=== PATIENT | male | born 1945 | race African-American/Black ===

== ENCOUNTER 2017-10-06 14:34 | Outpatient (CLI) | payer MEDICARE ==
[~2017-10-06 14:34] MED LIST: Gadobenate Dimeglumine 529 MG/1 ML (20ML VIAL) ONE
[2017-10-06 15:22] LABS: Estimated GFR-MDRD - POC Greater than 90
--- NOTE | 2017-10-06 16:34 | MRI ---
EXAM: BRAIN MRI WITH AND WITHOUT CONTRAST 10/06/17 COMPARISON: 11/08/13. HISTORY: Brain tumor. Status post surgery seven years ago. Followup exam. COMPARISON: 11/08/13. TECHNIQUE: Brain MRI is performed with and without intravenous gadolinium administration. Multisequential, mult iplanar imaging is performed. FINDINGS: Hemosiderin deposition along the right frontotemporal extra-axial space is redemonstrated. Stable pos tsurgical change involving the right frontal and temporal calvarium. No acute hemorrhage on the axial gradient echo sequence. Stable T2 and FLAIR white matter hyperintensity involving the right temporal lobe. Areas of gliosis i s favored. Minimal additional T2 and FLAIR white matter hyperintensities are noted, unchanged. Chroni c small vessel ischemic changes are favored. Central arterial flow voids are maintained. Absent restricted diffusion. 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 There is mild and stable diffuse enhancement of the meninges. No pathologic enhancement of the brain parenchyma. IMPRESSION: No evidence of recurrent or residual mass. Stable gliotic and malacic changes. POS: [facility]
== END 2017-10-06 14:35 | disposition home or self-care (01) ==
LOC: TBSIIMAG 14:34
PROVIDERS: ATTEND Neurological Surgery
DX: D49.6 Neoplasm of unspecified behavior of brain (principal)
CPT/HCPCS: 70553; A9579

== ENCOUNTER 2018-07-06 20:30 | Outpatient (CLI) | payer MEDICARE | END 2018-07-06 20:31 | disposition home or self-care (01) | LOC: SLEEPLAB 20:30 | PROVIDERS: ATTEND Family Medicine | DX: G47.33 Obstructive sleep apnea (adult) (pediatric) (principal); R53.83 Other fatigue; R06.83 Snoring; E66.9 Obesity, unspecified; R51 Headache; G47.9 Sleep disorder, unspecified; I10 Essential (primary) hypertension; Z68.41 Body mass index [BMI] 40.0-44.9, adult | CPT/HCPCS: 95810 ==

== ENCOUNTER 2021-11-28 14:10 | Outpatient (CLI) | payer MEDICARE | END 2021-11-28 14:11 | disposition home or self-care (01) | LOC: TBSIIMAG 14:10 | PROVIDERS: ATTEND Anesthesiology | DX: M54.50 Low back pain, unspecified (principal); M47.816 Spondylosis without myelopathy or radiculopathy, lumbar region; M48.061 Spinal stenosis, lumbar region without neurogenic claudication; N28.1 Cyst of kidney, acquired; E88.2 Lipomatosis, not elsewhere classified; M48.07 Spinal stenosis, lumbosacral region | CPT/HCPCS: 72148 ==

== ENCOUNTER 2022-02-13 10:46 | Emergency (ER) | payer MEDICARE ==
[2022-02-13 12:31] LABS: Hemoglobin 15.3 g/dL (14.0-18.0); Mean Corpuscular HGB CONC 31.6 g/dL (32.0-36.0); Mean Corpuscular Hemoglobin 29.7 pg (27.0-31.0); Mean Platelet Volume 8.4 fL (7.4-10.4); Platelet Count 273 thou/uL (130-400); RBC Distribution Width 13.9 % (11.5-14.5); Red Blood Cell (RBC) Count 5.16 mill/uL (4.70-6.10); White Blood Cell (WBC) Count 18.5 thou/uL (4.8-10.8)
[2022-02-13 12:50] LABS: Band 1 % (5-11); Eosinophils 2 % (0-10); Lymphocytes 73 % (21-51); MDiff Complete? YES; Monocytes 4 % (0-10); Neutrophil 18 % (42-75); Platelet Morphology Comment Appears Adequate; RBC Morphology Normal; Reactive Lymphocytes 2 % (0-10)
[2022-02-13 13:00] LABS: ALT (SGPT) 23 U/L (8-55); AST (SGOT) 28 U/L (5-34); Albumin 4.2 g/dL (3.4-4.8); Alkaline Phosphatase 61 U/L (40-110); Anion Gap 14 mmol/L (10-20); BUN (Urea Nitrogen) 12 mg/dL (8.4-25.7); Bilirubin, Total 0.6 mg/dL (0.2-1.2); Calc. Creatinine Clearance 0 mL/min (70-130); Calcium 9.6 mg/dL (7.8-10.44); Carbon Dioxide 27 mmol/L (23-31); Chloride 103 mmol/L (98-107); Globulin 3.3 g/dL (2.4-3.5); Glucose 107 mg/dL (83-110); Lipase 34 U/L (8-78); Potassium 3.7 mmol/L (3.5-5.1); Protein, Total 7.5 g/dL (5.8-8.1); Sodium 140 mmol/L (136-145)
[2022-02-13 14:34] LABS: Bilirubin Negative (Negative); Blood, Urine Negative (Negative); Clarity Clear (Clear); Glucose, Urine (Dipstick) Normal (Negative); Ketone, Urine Negative (Negative); Leukocyte Negative Leu/uL (Negative); Nitrite Negative (Negative); Protein, Urine (Dipstick) Negative (Neg-Trace); Specific Gravity, Urine 1.027 (1.002-1.036); Urobilinogen Normal mg/dL (Less than 2)
== END 2022-02-13 15:02 | disposition home or self-care (01) ==
LOC: ERS 10:46
DX: R10.9 Unspecified abdominal pain (principal); E11.9 Type 2 diabetes mellitus without complications; E78.5 Hyperlipidemia, unspecified; E78.00 Pure hypercholesterolemia, unspecified; I10 Essential (primary) hypertension; Z79.899 Other long term (current) drug therapy
CPT/HCPCS: 36415; 74177; 80053; 81003; 83690; 84484; 85025; 93005

== ENCOUNTER 2022-05-14 14:44 | Outpatient (CLI) | payer MEDICARE ==
[~2022-05-14 14:44] MED LIST changes: -Gadobenate Dimeglumine 529 MG/1 ML (20ML VIAL) ONE; +Iopamidol 370 76% 100 ML VIAL ONE
== END 2022-05-14 14:45 | disposition home or self-care (01) ==
LOC: BICCT 14:44
PROVIDERS: ATTEND Family Medicine
DX: R59.0 Localized enlarged lymph nodes (principal); K11.1 Hypertrophy of salivary gland
CPT/HCPCS: 70491; 74177; Q9967

== ENCOUNTER 2024-04-22 10:15 | Outpatient (CLI) | payer MEDICARE | END 2024-04-22 10:16 | disposition home or self-care (01) | LOC: PET 10:15 | PROVIDERS: ATTEND Internal Medicine Hematology & Oncology | DX: C91.10 Chronic lymphocytic leukemia of B-cell type not having achieved remission (principal); R59.0 Localized enlarged lymph nodes | CPT/HCPCS: 78815; A9552 ==

== ENCOUNTER 2024-08-11 13:56 | Outpatient (CLI) | payer MEDICARE | END 2024-08-11 13:57 | disposition home or self-care (01) | LOC: BICCT 13:56 | PROVIDERS: ATTEND Family Medicine | DX: N40.1 Benign prostatic hyperplasia with lower urinary tract symptoms (principal); R31.9 Hematuria, unspecified; E79.0 Hyperuricemia without signs of inflammatory arthritis and tophaceous disease; N28.1 Cyst of kidney, acquired; R59.0 Localized enlarged lymph nodes | CPT/HCPCS: 74178 ==

== ENCOUNTER 2024-12-15 13:35 | Emergency (ER) | payer MEDICARE ==
[2024-12-15 14:31] LABS: #Basophils 0.11 10x3/uL (0.0-0.2); %Basophils 1.7 % (0.0-1.0); %Eosinophils 1.4 % (0.0-10.0); %Lymphocytes 30.2 % (21.0-51.0); %Monocytes 11.7 % (0.0-10.0); %Neutrophils 50.2 % (42.0-75.0); Hematocrit 40.3 % (42.0-52.0); Hemoglobin 12.8 g/dL (14.0-18.0); Mean Corpuscular HGB CONC 31.8 g/dL (32.0-36.0); Mean Corpuscular Hemoglobin 27.1 pg (27.0-31.0); Mean Corpuscular Volume 85.4 fL (78.0-98.0); Platelet Count 346 10x3/uL (130-400); Red Blood Cell (RBC) Count 4.72 mill/uL (4.70-6.10)
[2024-12-15 14:32] LABS: Anisocytosis MODERATE=16-30 cells HPF (0-5); Macrocytosis SLIGHT = 6-15 cells HPF (0-5); Platelet Adequacy Comment Platelets Normal; Poikilocytosis SLIGHT = 6-15 cells HPF (0-5); Polychromasia SLIGHT = 2-3 cells HPF (0-2)
[2024-12-15 14:36] LABS: ALT (SGPT) 9 U/L (Less than 45); AST (SGOT) 25 U/L (11-34); Alkaline Phosphatase 72 U/L (40-110); Anion Gap 13 mmol/L (10-20); BUN (Urea Nitrogen) 13 mg/dL (8.4-25.7); Bilirubin, Total 0.9 mg/dL (0.3-1.2); Calc. Creatinine Clearance 0 mL/min (70-130); Calcium 9.4 mg/dL (7.8-10.44); Carbon Dioxide 27 mmol/L (23-31); Chloride 104 mmol/L (98-107); Estimated GFR 81; Globulin 3.4 g/dL (2.4-3.5); Glucose 94 mg/dL (83-110); Potassium 3.5 mmol/L (3.5-5.1); Protein, Total 7.4 g/dL (5.8-8.1); Sodium 140 mmol/L (136-145)
[2024-12-15 17:19] LABS: Bacteria/HPF None Seen HPF (None Seen); Bilirubin Negative (Negative); Blood, Urine Negative (Negative); CAUTI Indications for Culture Dysuria,urgency,freq; Clarity Clear (Clear); Glucose, Urine (Dipstick) Normal (Negative); Ketone, Urine Negative (Negative); Leukocyte 25 Leu/uL (Negative); Nitrite Negative (Negative); Protein, Urine (Dipstick) Negative (Neg-Trace); RBC/HPF 0-3 HPF (0-3); Specific Gravity, Urine 1.014 (1.002-1.036); Squamous Epithelial 0-3 HPF (0-3); Urobilinogen Normal mg/dL (Less than 2); pH, Urine 5.5 (5.0-9.0)
[2024-12-15 17:20] LABS: Urine Culture Reflex No No
== END 2024-12-15 17:35 | disposition home or self-care (01) ==
LOC: ERS 13:35
DX: N45.1 Epididymitis (principal); I86.1 Scrotal varices; N50.89 Other specified disorders of the male genital organs; E11.9 Type 2 diabetes mellitus without complications; I10 Essential (primary) hypertension; Z55.6 Problems related to health literacy
CPT/HCPCS: 36415; 76870; 80053; 81001; 85025; 93976

== ENCOUNTER 2025-04-18 12:17 | Outpatient (CLI) | payer MEDICARE ==
[2025-04-18 13:44] LABS: Hematocrit 46.2 % (42.0-52.0); Hemoglobin 14.5 g/dL (14.0-18.0); Mean Corpuscular Hemoglobin 26.4 pg (27.0-31.0); Mean Corpuscular Volume 84.2 fL (78.0-98.0); Platelet Count 304 10x3/uL (130-400); Red Blood Cell (RBC) Count 5.49 mill/uL (4.70-6.10); White Blood Cell (WBC) Count 5.71 10x3/uL (4.8-10.8)
[2025-04-18 14:01] LABS: INR-International Normal Ratio 1.1; Prothrombin Time 14.2 sec (12.0-14.7)
[2025-04-18 14:02] LABS: PTT 28.6 sec (22.9-36.1)
[2025-04-18 14:22] LABS: Anion Gap 13 mmol/L (10-20); BUN (Urea Nitrogen) 16 mg/dL (8.4-25.7); Calc. Creatinine Clearance 0 mL/min (70-130); Calcium 9.2 mg/dL (7.8-10.44); Carbon Dioxide 25 mmol/L (23-31); Chloride 109 mmol/L (98-107); Glucose 105 mg/dL (83-110); Potassium 3.5 mmol/L (3.5-5.1); Sodium 143 mmol/L (136-145)
[2025-04-18 14:37] LABS: Bacteria/HPF None Seen HPF (None Seen); Glucose, Urine (Dipstick) Normal (Negative); Leukocyte Negative Leu/uL (Negative); Protein, Urine (Dipstick) Negative (Neg-Trace); RBC/HPF 0-3 HPF (0-3); Specific Gravity, Urine 1.017 (1.002-1.036); WBC/HPF 0-3 HPF (0-3)
== END 2025-04-18 12:18 | disposition home or self-care (01) ==
LOC: LABBT 12:17
PROVIDERS: ATTEND Urology
DX: Z01.818 Encounter for other preprocedural examination (principal); N50.812 Left testicular pain; N45.1 Epididymitis; N40.1 Benign prostatic hyperplasia with lower urinary tract symptoms; K59.01 Slow transit constipation; C95.90 Leukemia, unspecified not having achieved remission; I10 Essential (primary) hypertension; E11.9 Type 2 diabetes mellitus without complications; N52.1 Erectile dysfunction due to diseases classified elsewhere; R31.0 Gross hematuria; R97.20 Elevated prostate specific antigen [PSA]; E66.01 Morbid (severe) obesity due to excess calories
CPT/HCPCS: 71046; 80048; 81001; 85027; 85610; 85730; 87077; 87086; 93005; 93010

== ENCOUNTER 2025-04-27 09:30 | Day surgery (SDC) | payer MEDICARE ==
[2025-04-18 12:37] VITALS: BMI 41.1
[2025-04-27] MEDS ORDERED: cefTRIAXone (ROCEPHIN) 1 GM VIAL ONE (10:17)
[2025-04-27] MEDS ORDERED: fentaNYL PF 100 MCG/2 ML SYRINGE ONE (11:51)
[2025-04-27] MEDS ORDERED: Lidocaine 1% PF 5 ML VIAL ONE (11:51)
[2025-04-27] MEDS ORDERED: PROPOFOL 20 ML ONE (11:51)
[2025-04-27] MEDS ORDERED: Ondansetron PF 4 MG/2 ML Vial ONE (11:51)
[2025-04-27] MEDS ORDERED: Oxybutynin 5 MG TAB ONE (14:26)
== END 2025-04-27 17:21 | disposition home or self-care (01) ==
LOC: SDC 09:30
PROVIDERS: ATTEND Urology
PROC: 0VT08ZZ Resection of Prostate, Via Natural or Artificial Opening Endoscopic (ICD-10-PCS; principal; 2025-04-27)
DX: C61 Malignant neoplasm of prostate (principal); N40.1 Benign prostatic hyperplasia with lower urinary tract symptoms; N13.8 Other obstructive and reflux uropathy; N50.812 Left testicular pain; N45.1 Epididymitis; I10 Essential (primary) hypertension; K21.9 Gastro-esophageal reflux disease without esophagitis; E66.01 Morbid (severe) obesity due to excess calories; Z68.41 Body mass index [BMI] 40.0-44.9, adult; Z79.899 Other long term (current) drug therapy
CPT/HCPCS: 52601; A4333; J0696; J2405; J2704; 88305; 88344

== ENCOUNTER 2025-05-14 17:18 | Inpatient (IN) | payer MEDICARE ==
[2025-05-14] MEDS ORDERED: Acetaminophen 500 MG TAB PO PRN (21:15)
[2025-05-14] MEDS ORDERED: hydrALAZINE 20 MG/ML VIAL SLOW IVP PRN (21:15)
[2025-05-14 21:17] LABS: #Basophils 0.06 10x3/uL (0.0-0.2); #Eosinophils 0.10 10x3/uL (0.0-0.7); #Monocytes 0.48 10x3/uL (0.11-0.59); #Neutrophils 6.30 10x3/uL (1.40-6.50); %Basophils 0.7 % (0.0-1.0); %Eosinophils 1.1 % (0.0-10.0); %Lymphocytes 21.0 % (21.0-51.0); %Monocytes 5.4 % (0.0-10.0); %Neutrophils 70.5 % (42.0-75.0); Hematocrit 39.3 % (42.0-52.0); Hemoglobin 12.7 g/dL (14.0-18.0); Mean Corpuscular Hemoglobin 26.4 pg (27.0-31.0); Mean Corpuscular Volume 81.7 fL (78.0-98.0); Platelet Count 492 10x3/uL (130-400); Red Blood Cell (RBC) Count 4.81 mill/uL (4.70-6.10); White Blood Cell (WBC) Count 8.94 10x3/uL (4.8-10.8)
[2025-05-14] MEDS ORDERED: Calcium Carbonate 500 MG ChewTAB PO PRN (21:20)
[2025-05-14] MEDS ORDERED: Ondansetron PF 4 MG/2 ML Vial IVP PRN (21:20)
[2025-05-14 21:37] LABS: ALT (SGPT) 21 U/L (Less than 45); AST (SGOT) 36 U/L (11-34); Albumin 3.5 g/dL (3.1-4.5); Alkaline Phosphatase 84 U/L (40-110); Anion Gap 14 mmol/L (10-20); BUN (Urea Nitrogen) 14 mg/dL (8.4-25.7); Bilirubin, Total 0.4 mg/dL (0.3-1.2); Calc. Creatinine Clearance 0 mL/min (70-130); Calcium 9.2 mg/dL (7.8-10.44); Carbon Dioxide 25 mmol/L (23-31); Chloride 99 mmol/L (98-107); Globulin 3.5 g/dL (2.4-3.5); Glucose 120 mg/dL (83-110); Potassium 3.9 mmol/L (3.5-5.1); Sodium 134 mmol/L (136-145)
[2025-05-14 22:19] VITALS: BMI 41.2
[2025-05-14] MEDS: cefTRIAXone\\ROCEPHIN 1 GM in Sodium Chloride 0.9% 100 ML IVPB SCH (22:32)
[2025-05-14] MEDS: HYDROcodone/Acetaminophen 5/325 mg Tablet PO PRN (23:02)
[2025-05-14] MEDS: Melatonin 3 MG TAB PO PRN (23:03)
[2025-05-15 00:06] LABS: Bacteria/HPF None Seen HPF (None Seen); CAUTI Indications for Culture Pelvic or flank pain; Glucose, Urine (Dipstick) Normal (Negative); Leukocyte 500 Leu/uL (Negative); Protein, Urine (Dipstick) 30 mg/dL (Neg-Trace); RBC/HPF Greater than 50 HPF (0-3); Specific Gravity, Urine 1.005 (1.002-1.036); WBC/HPF Greater than 50 HPF (0-3)
[2025-05-15 00:12] LABS: Urine Culture Reflex Yes Yes
[2025-05-15 06:35] LABS: #Basophils 0.07 10x3/uL (0.0-0.2); #Eosinophils 0.18 10x3/uL (0.0-0.7); #Monocytes 0.80 10x3/uL (0.11-0.59); #Neutrophils 4.75 10x3/uL (1.40-6.50); %Basophils 0.8 % (0.0-1.0); %Eosinophils 2.2 % (0.0-10.0); %Lymphocytes 29.7 % (21.0-51.0); %Monocytes 9.6 % (0.0-10.0); %Neutrophils 57.0 % (42.0-75.0); Hematocrit 41.4 % (42.0-52.0); Hemoglobin 13.3 g/dL (14.0-18.0); Mean Corpuscular Hemoglobin 26.5 pg (27.0-31.0); Mean Corpuscular Volume 82.6 fL (78.0-98.0); Platelet Count 508 10x3/uL (130-400); Red Blood Cell (RBC) Count 5.01 mill/uL (4.70-6.10); White Blood Cell (WBC) Count 8.34 10x3/uL (4.8-10.8)
[2025-05-15 06:47] LABS: Anion Gap 13 mmol/L (10-20); BUN (Urea Nitrogen) 12 mg/dL (8.4-25.7); Calc. Creatinine Clearance 115 mL/min (70-130); Calcium 9.0 mg/dL (7.8-10.44); Carbon Dioxide 25 mmol/L (23-31); Chloride 102 mmol/L (98-107); Glucose 110 mg/dL (83-110); Potassium 3.4 mmol/L (3.5-5.1); Sodium 137 mmol/L (136-145)
[2025-05-15] MEDS: Allopurinol 100 MG TAB PO SCH (09:03)
[2025-05-15] MEDS: Pregabalin 50 MG CAP PO SCH (09:04)
[2025-05-15] MEDS: Metoprolol Succinate XL 50 MG ER.TAB PO SCH (09:04)
[2025-05-15 14:43] LABS: Potassium 3.7 mmol/L (3.5-5.1)
[2025-05-15] MEDS: Oxybutynin 5 MG TAB PO PRN (20:55)
[2025-05-16] MEDS: HYDROcodone/Acetaminophen 5/325 mg Tablet PO PRN (03:17)
[2025-05-16 04:50] LABS: #Basophils 0.09 10x3/uL (0.0-0.2); #Eosinophils 0.29 10x3/uL (0.0-0.7); #Monocytes 0.97 10x3/uL (0.11-0.59); #Neutrophils 5.29 10x3/uL (1.40-6.50); %Basophils 1.0 % (0.0-1.0); %Eosinophils 3.2 % (0.0-10.0); %Lymphocytes 26.7 % (21.0-51.0); %Monocytes 10.6 % (0.0-10.0); %Neutrophils 57.5 % (42.0-75.0); Hematocrit 39.5 % (42.0-52.0); Hemoglobin 12.5 g/dL (14.0-18.0); Mean Corpuscular Hemoglobin 26.4 pg (27.0-31.0); Mean Corpuscular Volume 83.3 fL (78.0-98.0); Platelet Count 513 10x3/uL (130-400); Red Blood Cell (RBC) Count 4.74 mill/uL (4.70-6.10); White Blood Cell (WBC) Count 9.18 10x3/uL (4.8-10.8)
[2025-05-16 05:29] LABS: Anion Gap 14 mmol/L (10-20); BUN (Urea Nitrogen) 13 mg/dL (8.4-25.7); Calc. Creatinine Clearance 107 mL/min (70-130); Calcium 9.1 mg/dL (7.8-10.44); Carbon Dioxide 25 mmol/L (23-31); Chloride 101 mmol/L (98-107); Glucose 101 mg/dL (83-110); Potassium 3.5 mmol/L (3.5-5.1); Sodium 136 mmol/L (136-145)
[2025-05-16] MEDS: Senokot S 8.6-50 MG TAB PO PRN (08:51)
[2025-05-16 11:52] VITALS: BP 137/82; TEMP 97.3
== END 2025-05-16 18:02 | disposition home or self-care (01) | DRG 920 ==
LOC: ERS 17:18 → SURG B 21:24
PROVIDERS: ADMIT Internal Medicine; ATTEND Family Medicine
PROC: 0T2BX0Z Change Drainage Device in Bladder, External Approach (ICD-10-PCS; principal; 2025-05-14)
PROC: 3E03329 Introduction of Other Anti-infective into Peripheral Vein, Percutaneous Approach (ICD-10-PCS; 2025-05-14)
DX: N99.820 Postprocedural hemorrhage of a genitourinary system organ or structure following a genitourinary system procedure (principal); C91.10 Chronic lymphocytic leukemia of B-cell type not having achieved remission; D62 Acute posthemorrhagic anemia; Z68.41 Body mass index [BMI] 40.0-44.9, adult; R31.0 Gross hematuria; I10 Essential (primary) hypertension; G62.9 Polyneuropathy, unspecified; M10.9 Gout, unspecified; E11.9 Type 2 diabetes mellitus without complications; G89.29 Other chronic pain; Z79.82 Long term (current) use of aspirin; Z79.899 Other long term (current) drug therapy; C61 Malignant neoplasm of prostate; N40.1 Benign prostatic hyperplasia with lower urinary tract symptoms; R33.8 Other retention of urine; E78.00 Pure hypercholesterolemia, unspecified; E66.01 Morbid (severe) obesity due to excess calories
CPT/HCPCS: 36415; 36416; 51798; 80048; 80053; 81001; 85025; 87086; 99284; J0696

== ENCOUNTER 2025-05-18 19:55 | Emergency (ER) | payer MEDICARE ==
[2025-05-18 21:58] LABS: CAUTI Indications for Culture Urological Procedure; Glucose, Urine (Dipstick) Normal (Negative); Leukocyte 500 Leu/uL (Negative); Protein, Urine (Dipstick) 200 mg/dL (Neg-Trace); RBC/HPF Greater than 50 HPF (0-3); Specific Gravity, Urine 1.017 (1.002-1.036); WBC/HPF Greater than 50 HPF (0-3)
[2025-05-18 21:59] LABS: Bacteria/HPF 1+ HPF (None Seen)
[2025-05-18 22:00] LABS: Urine Culture Reflex Yes Yes
[2025-05-18] MEDS ORDERED: Ciprofloxacin 500 MG TAB ONE (22:05)
== END 2025-05-18 22:24 | disposition home or self-care (01) ==
LOC: ERS 19:55
DX: T83.091A Other mechanical complication of indwelling urethral catheter, initial encounter (principal); N39.0 Urinary tract infection, site not specified; I10 Essential (primary) hypertension
CPT/HCPCS: 51702; 81001; 87086; 99283

== ENCOUNTER 2025-05-20 23:15 | Emergency (ER) | payer MEDICARE | END 2025-05-21 00:20 | disposition home or self-care (01) | LOC: ERS 23:15 | DX: T83.091A Other mechanical complication of indwelling urethral catheter, initial encounter (principal); R33.9 Retention of urine, unspecified; I10 Essential (primary) hypertension | CPT/HCPCS: 51798; 99282 ==

== ENCOUNTER 2025-05-30 13:32 | Outpatient (CLI) | payer MEDICARE | END 2025-05-30 13:33 | disposition home or self-care (01) | LOC: BICMRI 13:32 | PROVIDERS: ATTEND Nurse Practitioner Family | DX: M47.816 Spondylosis without myelopathy or radiculopathy, lumbar region (principal); M48.061 Spinal stenosis, lumbar region without neurogenic claudication; M48.07 Spinal stenosis, lumbosacral region | CPT/HCPCS: 72148 ==

== ENCOUNTER 2025-06-28 14:13 | Outpatient (CLI) | payer MEDICARE | END 2025-06-28 14:14 | disposition home or self-care (01) | LOC: BICRAD 14:13 | PROVIDERS: ATTEND Nurse Practitioner Family | DX: M47.816 Spondylosis without myelopathy or radiculopathy, lumbar region (principal); M25.552 Pain in left hip; M25.551 Pain in right hip; M47.817 Spondylosis without myelopathy or radiculopathy, lumbosacral region; I70.0 Atherosclerosis of aorta; M25.852 Other specified joint disorders, left hip; M25.851 Other specified joint disorders, right hip | CPT/HCPCS: 72120; 73522 ==